=== PATIENT | male | born 1960 | race African-American/Black ===

== ENCOUNTER 2023-06-12 10:51 | Emergency (ER) | payer MEDICAID ==
[~2023-06-12] VITALS: Ht 175.3 cm; Wt 80.3 kg
[2023-06-12 11:00] VITALS: BP_SYST 168; PULSE 54; RESP 18; TEMP 97; O2SAT 99
[2023-06-12] MEDS ORDERED: LIP20 PO (11:16)
[2023-06-12] MEDS ORDERED: HYDR25TA4 PO (11:16)
[2023-06-12] MEDS ORDERED: APIX5TAB PO (11:16)
[2023-06-12] MEDS ORDERED: ARIP10TA52 PO (11:16)
[2023-06-12] MEDS ORDERED: TRAZ-251 PO (11:16)
[2023-06-12] MEDS ORDERED: SERT-131 PO (11:16)
[2023-06-12 11:54] LABS: BASOPHILS # (AUTO) 0.1 K/uL (0.0-0.2); BASOPHILS % (AUTO) 1.3 % (0.0-2.0); EOSINOPHILS # (AUTO) 0.2 K/uL (0.0-0.4); EOSINOPHILS % (AUTO) 5.3 % (0.0-4.0); HEMATOCRIT 46.1 % (36-54); HEMOGLOBIN 14.8 g/dL (14.0-18.0); LYMPHOCYTES # (AUTO) 1.6 K/uL (1.0-5.5); LYMPHOCYTES % (AUTO) 34.4 % (20.5-51.5); MEAN CORPUSCULAR HEMOGLOBIN 27 pg (27-31); MEAN CORPUSCULAR HGB CONC 32 % (32-36); MEAN CORPUSCULAR VOLUME 84 fL (79.0-98.0); MONOCYTES # (AUTO) 0.5 K/uL (0.0-1.0); MONOCYTES % (AUTO) 10.7 % (1.7-9.3); NEUTROPHILS # (AUTO) 2.2 K/uL (1.8-7.7); NEUTROPHILS % (AUTO) 48.3 % (40.0-70.0); PLATELET COUNT (AUTO) 150 K/uL (130-430); RED BLOOD CELL COUNT(AUTO) 5.49 MIL/uL (4.2-6.2); RED CELL DISTRIBUTION WIDTH 14.9 % (9.0-15.0); WHITE BLOOD COUNT (AUTO) 4.7 K/uL (4.8-10.8)
[2023-06-12 12:13] LABS: ANION GAP 5 (5-15); CALCIUM 9.5 mg/dL (8.4-11.0); CARBON DIOXIDE 33 mmol/L (23-29); CHLORIDE 101 mmol/L (98-107); CREATININE 1.29 mg/dL (0.55-1.30); GFR AFRICAN AMERICAN 73 mL/min (>90); GLUCOSE 91 mg/dL (74-106); POTASSIUM 4.3 mmol/L (3.5-5.1); SODIUM SERUM 139 mmol/L (136-145); UREA NITROGEN, BLOOD 19 mg/dL (8-21)
[2023-06-12 12:15] LABS: GFR NON AFRICAN-AMERICAN 60 mL/min (>90)
[2023-06-12 12:21] LABS: ALANINE AMINOTRANSFERASE 38 U/L (12-78); ALBUMIN 3.9 g/dL (3.4-4.8); ASPARTATE AMINOTRANSFERASE 22 U/L (10-37); TOTAL BILIRUBIN 0.4 mg/dL (0.0-1.0); TOTAL PROTEIN, SERUM 7.4 g/dL (6.4-8.3)
[2023-06-12 13:12] VITALS: BP_SYST 145; PULSE 48; RESP 18; TEMP 97; O2SAT 99
== END 2023-06-12 13:12 | disposition home or self-care (01) ==
LOC: SED 10:51
DX: F41.9 Anxiety disorder, unspecified (principal); R07.89 Other chest pain; F15.90 Other stimulant use, unspecified, uncomplicated; Z79.899 Other long term (current) drug therapy
CPT/HCPCS: 36415; 71045; 80053; 84484; 85025; 85379; 93005; 99285